=== PATIENT | male | born 1990 | race Two or more races ===

== ENCOUNTER 2017-10-14 22:26 | Emergency (ER) | payer SELFPAY ==
[~2017-10-14] VITALS: Ht 170.2 cm; Wt 82.0 kg
[2017-10-15] MEDS ORDERED: DIPHENHYDRAMINE 50MG/ML VIAL IM STA (00:39)
[2017-10-15] MEDS ORDERED: OLANZAPINE 10 MG/VIAL IM STA (00:39)
[2017-10-15] MEDS ORDERED: SODIUM CHLORIDE 0.9% 1,000 ML IV ONE (00:39)
[2017-10-15] MEDS ORDERED: THIAMINE HCL 100 MG/1 ML 2ML VIAL IV ONE (00:45)
[2017-10-15 01:25] LABS: BASOPHILS % 0.6 % (0.0-2.0); EOSINOPHILS % 1.1 % (0.0-5.0); HEMATOCRIT. 42.3 % (42.0-52.0); LYMPHOCYTES % 20.1 % (20.0-50.0); MEAN CORPUSCULAR HEMOGLOBIN 32.7 pg (28.0-32.0); MEAN CORPUSCULAR VOLUME 92.3 fL (80.0-94.0); MEAN PLATELET VOLUME 9.6 fl (7.4-10.4); MONOCYTES % 6.6 % (2.0-8.0); NEUTROPHILS % 71.6 % (40.0-76.0); PLATELET 221 x1000/uL (130-400); RED BLOOD CELL COUNT 4.58 mill/uL (4.7-6.1)
[2017-10-15 01:36] LABS: AMMONIA < 25 uMol/L (<32)
[2017-10-15 01:38] LABS: CHLORIDE 107 mEq/L (98-107); ETHANOL BLOOD < 10 mg/dL
[2017-10-15 01:44] LABS: CREATINE KINASE 102 IU/L (39-308)
[2017-10-15] MEDS ORDERED: SODIUM CHLORIDE 0.9% 1000ML BAG (SEPSIS BOLUS) IV ONE (01:45)
[2017-10-15 01:59] LABS: PROTHROMBIN TIME 10.6 sec (9.4-11.6)
[2017-10-15] MEDS ORDERED: CEFTRIAXONE 1 G PREMIX 50 ML IV SCH (02:49)
[2017-10-15] MEDS ORDERED: AZITHROMYCIN 500 MG in DEXT 5% WATER 250 ML IV SCH ×4 (03:00)
[2017-10-15 05:01] VITALS: BP 128/64
== END 2017-10-15 06:07 | disposition home or self-care (01) ==
LOC: ER 22:26
DX: F23 Brief psychotic disorder (principal); F15.10 Other stimulant abuse, uncomplicated; Z91.14 Patient's other noncompliance with medication regimen
CPT/HCPCS: 36415; 70450; 71045; 72125; 80053; 80307; 80329; 82140; 82550; 83605; 83690; 83880; 84443; 84484; 85025; 85610; 93005; 96361; 96365; 96367; 96372; 96375; 99285; G0482; J0456; J0696; J1200; J3411; J3490; J7030; Z7610; J7060

== ENCOUNTER 2024-06-01 17:50 | Emergency (ER) | payer MEDICAID ==
[~2024-06-01] VITALS: Ht 165.1 cm; Wt 108.0 kg
[2024-06-01 17:56] VITALS: BP 141/95; PULSE 130; RESP 16; TEMP 98.6; O2SAT 95
== END 2024-06-01 18:04 | disposition left against medical advice (07) ==
LOC: ER 17:50
DX: R00.0 Tachycardia, unspecified (principal); Z53.21 Procedure and treatment not carried out due to patient leaving prior to being seen by health care provider